=== PATIENT | male | born 1980 ===

== ENCOUNTER → 2021-03-29 07:50 | Outpatient (CLI) | payer OTHER, SELFPAY ==
--- NOTE | 2021-04-11 14:34 | WPDSLEEPSTUD ---
Sleep Study Date of Study: 03/29/21 <Justine Thomas, DO - Last Filed: 04/11/21 15:40> Ordering Provider: Raina Burks, [employer]GRAMMER- <Justine Thomas, DO - Last Filed: 04/11/21 15:40> Interpreting Physician: Justine Thomas DO <Justine Thomas, DO - Last Filed: 04/11/21 15:40> Sleep Study Type: Polysomnogram <Justine Thomas, DO - Last Filed: 04/11/21 15:40> Height: 1.75 m <Justine Thomas - Last Filed: 04/11/21 15:40> Weight: 83.915 kg <Justine Thomas DO - Last Filed: 04/11/21 15:40> Body Mass Index: 27.3 <Justine Thomas DO - Last Filed: 04/11/21 15:40> Neck Circumference (inches): 15 <Justine Thomas DO - Last Filed: 04/11/21 15:40> [place]: 14 <Justine Thomas DO - Last Filed: 04/11/21 15:40> Reason for Sleep Study Unrefreshing sleep and nighttime awakenings. <Justine Thomas, DO - Last Filed: 04/11/21 15:40> Sleep History The patient is a 40-year-old male with generalized anxiety disorder and sleep disturbances that had a sleep study ordered due to unrefreshing sleep and multiple nighttime awakenings. The patient's states that he snores a lot and frequently gasps for air. The patient states that this is been going on every night for at least 2 years. The patient's father, mother and sister have all been diagnosed with sleep apnea. The patient states that he frequently awakens from sleep short of breath. He constantly awakens at night with heartburn, belching or cough. He frequently snores loud enough that others complain. He constantly has trouble sleeping when he has a cold. He occasionally wakes up gasping for air throughout the night. He occasionally has breathing problems at night observed by others. He occasionally has heart palpitations throughout the night. He occasionally falls asleep during the day but never while driving. He frequently has trouble at work due to sleepiness. He denies sleep paralysis and cataplexy. He occasionally experiences vivid dreamlike scenes upon awakening or falling asleep. He occasionally has nightmares. He constantly has thoughts racing through his mind. He frequently feels sad or depressed and constantly feels anxious. He frequently has muscular tension. He denies kicking throughout the night. He denies experiencing crawling and aching feelings in his legs. he denies leg pain during the night. He frequently grains his teeth during sleep and frequently awakens with jaw pain. He is frequently bothered by pain during the day and is occasionally awakened by pain during the night. He constantly wakes up feeling stiff in the morning with sore and achy muscles. 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 He goes to bed between midnight and 1:00 a.m. on the weekdays and between 2:00 a.m. and 3:00 a.m. on the weekends. Her he states that it sometimes takes a few hours for him to fall asleep. He wakes up 4-5 times per night. When he awakens, he will get a snack and use the restroom. He wakes up at 6:30 a.m. on both weekdays and the weekends. He typically gets 4-5 hours of sleep per night. He currently lives with his . He does work split shifts or rotating shifts. He does not engage in physical exercise before bedtime. He will read and watch television before falling asleep. He does not take any naps in the afternoon or the evening. He currently smokes 1 pack of cigarettes per day. He drinks 2-3 caffeinated beverages per day. He drinks 6-8 alcoholic beverages per week. He denies recreational drug use. <Justine Thomas, DO - Last Filed: 04/11/21 15:40> Sleep Procedure This test was performed using the [employer] multiple channel system including EOG, EEG, submental EMG, EKG, nasal and oral airflow using thermistors and nasal pressure sensors, chest and abdominal belts for body position data, and pulse oximetry. Video monitoring was also perform
[2021-04-11 14:48] VITALS: BMI 27.3
== END ==
PROVIDERS: PCP Nurse Practitioner; Visit Provider Nurse Practitioner
DX: G47.9 Sleep disorder, unspecified (principal)
CPT/HCPCS: 95810